=== PATIENT | male | born 1985 | race Caucasian/White ===

== ENCOUNTER 2019-03-30 20:26 | Emergency (ER) | payer OTHER ==
[~2019-03-30] VITALS: Ht 167.6 cm; Wt 79.4 kg
[2019-03-30] MEDS ORDERED: NAPROSYN500 MG PO (21:22)
[2019-03-30 21:33] VITALS: BP 136/70
== END 2019-03-30 21:35 | disposition home or self-care (01) ==
LOC: ER 20:26
DX: S39.011A Strain of muscle, fascia and tendon of abdomen, initial encounter (principal); W00.0XXA Fall on same level due to ice and snow, initial encounter; Y92.89 Other specified places as the place of occurrence of the external cause; Y93.89 Activity, other specified; Y99.8 Other external cause status